=== PATIENT | female | born 1980 | race African-American/Black ===

== ENCOUNTER → 2020-01-22 | Outpatient (CLI) | payer OTHER, MEDICAID ==
[~2020-01-22] VITALS: Ht 167.6 cm; Wt 90.0 kg
[~2020-01-22] MED LIST: IBUP-2030 PO
[2020-01-22 11:24] VITALS: BP 102/70
== END | disposition home or self-care (01) ==
LOC: ER 11:23 → EDSTATUS 12:15 → LAB 12:27
PROVIDERS: ATTEND Obstetrics & Gynecology
DX: Z01.818 Encounter for other preprocedural examination (principal); Z11.59 Encounter for screening for other viral diseases
CPT/HCPCS: C9803; U0003

== ENCOUNTER 2020-01-23 05:03 | Inpatient (IN) | payer MEDICAID ==
[~2020-01-23] VITALS: Ht 167.6 cm; Wt 87.1 kg
[2020-01-23] MEDS ORDERED: MISOPROSTOL 200MCG TABLET VG SCH (06:30)
[2020-01-23] MEDS ORDERED: LACTATED RINGERS 1,000 ML IV SCH (06:30)
[2020-01-23 07:02] LABS: BASOPHILS % 0.4 % (0.0-2.0); EOSINOPHILS % 0.7 % (0.0-5.0); HEMATOCRIT. 35.7 % (36.0-48.0); LYMPHOCYTES % 23.6 % (20.0-50.0); MEAN CORPUSCULAR HEMOGLOBIN 29.1 pg (28.0-32.0); MEAN CORPUSCULAR VOLUME 86.7 fL (81.0-99.0); MEAN PLATELET VOLUME 8.3 fl (7.4-10.4); MONOCYTES % 8.2 % (2.0-8.0); NEUTROPHILS % 67.1 % (40.0-76.0); PLATELET 289 x1000/uL (130-400); RED BLOOD CELL COUNT 4.12 mill/uL (4.2-5.4); RED CELL DISTRIBUTION WIDTH 13.4 % (11.6-14.6)
[2020-01-23 07:21] LABS: *AMPHETAMINES SCREEN URINE NEGATIVE (NEGATIVE); *BARBITURATES SCREEN URINE NEGATIVE (NEGATIVE); *BENZODIAZEPINES SCREEN URINE NEGATIVE (NEGATIVE); *COCAINE SCREEN URINE NEGATIVE (NEGATIVE); METHADONE URINE SCREEN NEGATIVE (NEGATIVE); OPIATES URINE SCREEN NEGATIVE (NEGATIVE)
[2020-01-23 07:22] LABS: CANNABINOID URINE SCREEN NEGATIVE (NEGATIVE); PHENCYCLIDINE URINE SCREEN NEGATIVE (NEGATIVE)
[2020-01-23 08:05] LABS: HEPATITIS B SURFACE ANTIGEN NEGATIVE
[2020-01-23 08:07] LABS: INR 0.9; PROTHROMBIN TIME 9.7 sec (9.6-11.0)
[2020-01-23] MEDS ORDERED: TERBUTALINE SULFATE 1MG/ML VIAL ONE (08:21)
[2020-01-23] MEDS: TERBUTALINE SULFATE 1MG/ML VIAL SUBCUT PRN ×2 (08:37→11:04)
[2020-01-23] MEDS ORDERED: CITRIC ACID/SODIUM CITRATE SOLN 30ML UDC PO SCH (12:15)
[2020-01-23] MEDS ORDERED: MORPHINE SULFATE/PF 1MG/ML 10ML AMP ONE (13:19)
[2020-01-23] MEDS ORDERED: DIPHENHYDRAMINE 50MG/ML VIAL IV PRN (14:30)
[2020-01-23] MEDS ORDERED: KETOROLAC 30MG/ML VIAL IV PRN ×2 (14:30→14:45)
[2020-01-23] MEDS ORDERED: DEXT 5%/LR + PITOCIN 20UNITS/L 1,000 ML IV SCH (14:32)
[2020-01-23] MEDS ORDERED: BISACODYL 10MG SUPP PR PRN (14:45)
[2020-01-23] MEDS ORDERED: RHO(D) IMMUNE GLOBULIN 300 MCG/SYR IM PRN (14:45)
[2020-01-23] MEDS ORDERED: IBUPROFEN 400MG TABLET PO PRN (14:45)
[2020-01-23 16:30] VITALS: BP 109/70
[2020-01-23 17:00] VITALS: BP 113/61
[2020-01-23] MEDS: DEXT 5%/LR + PITOCIN 20UNITS/L 1,000 ML IV SCH (17:29)
[2020-01-23 18:00] VITALS: BP 110/62
[2020-01-23 19:30] VITALS: BP 122/57
[2020-01-24 00:01] VITALS: BP 119/68
[2020-01-24] MEDS: DEXT 5%/LR + PITOCIN 20UNITS/L 1,000 ML IV SCH (01:41)
[2020-01-24 04:00] VITALS: BP 114/75
[2020-01-24 07:14] LABS: BASOPHILS % 0.3 % (0.0-2.0); EOSINOPHILS % 0.7 % (0.0-5.0); HEMATOCRIT. 36.4 % (36.0-48.0); HEMOGLOBIN. 12.1 g/dL (12.0-16.0); LYMPHOCYTES % 12.3 % (20.0-50.0); MEAN CORPUSCULAR HEMOGLOBIN 29.1 pg (28.0-32.0); MEAN PLATELET VOLUME 8.3 fl (7.4-10.4); NEUTROPHILS % 79.7 % (40.0-76.0); PLATELET 261 x1000/uL (130-400); RED BLOOD CELL COUNT 4.13 mill/uL (4.2-5.4); RED CELL DISTRIBUTION WIDTH 13.6 % (11.6-14.6)
[2020-01-24 08:00] VITALS: BP 108/75
[2020-01-24] MEDS: IBUPROFEN 800MG TABLET PO PRN ×2 (13:28→20:37)
[2020-01-24 15:40] VITALS: BP 111/54
[2020-01-24 20:00] VITALS: BP 108/82
[2020-01-25] VITALS: BP 116/83
[2020-01-25 04:00] VITALS: BP 120/86
[2020-01-25] MEDS: IBUPROFEN 800MG TABLET PO PRN (04:03)
[2020-01-25 07:39] VITALS: BP 118/82
[2020-01-25] MEDS ORDERED: IBUP-2030 PO (09:37)
== END 2020-01-25 11:00 | disposition home or self-care (01) | DRG 540 ==
LOC: 8 EST LDRP 05:03 → OBSVTOIN 05:03 → 8EST 11:00 → 8 EST LDRP 11:03 → 8EST 16:24
PROVIDERS: ADMIT Obstetrics & Gynecology; ATTEND Obstetrics & Gynecology
PROC: 10D00Z1 Extraction of Products of Conception, Low, Open Approach (ICD-10-PCS; principal; 2020-01-23)
DX: O30.003 Twin pregnancy, unspecified number of placenta and unspecified number of amniotic sacs, third trimester (principal); O69.81X2 Labor and delivery complicated by cord around neck, without compression, fetus 2; O34.211 Maternal care for low transverse scar from previous cesarean delivery; Z3A.37 37 weeks gestation of pregnancy; Z37.2 Twins, both liveborn
CPT/HCPCS: 36415; 76815; 80305; 85025; 86592; 86703; 86762; 86850; 86900; 86920; 87340; 88307; J1200; J1885; J2274; J2590; J3105; J7120